=== PATIENT | male | born 1985 | race American Indian/Alaskan Native ===

== ENCOUNTER 2022-04-18 13:05 | Emergency (ER) | payer BC ==
[~2022-04-18] VITALS: Ht 182.9 cm; Wt 136.1 kg
[2022-04-18 15:01] LABS: ALBUMIN 4.1 g/dL (3.5-5.0); ALBUMIN/GLOBULIN RATIO 1.4 (0.8-2.0); POTASSIUM 4.2 mmol/L (3.5-5.1)
[2022-04-18 15:14] LABS: ANION GAP 15.2 mmol/L (8-16); CALCIUM 9.5 mg/dL (8.4-10.2); CREATININE, SERUM 0.92 mg/dL (0.72-1.25)
== END 2022-04-18 16:05 | disposition home or self-care (01) ==
LOC: ER 13:39
DX: E11.9 Type 2 diabetes mellitus without complications (principal); R79.89 Other specified abnormal findings of blood chemistry; Z77.028 Contact with and (suspected) exposure to other hazardous aromatic compounds; Z88.0 Allergy status to penicillin
CPT/HCPCS: 36415; 80053; 99282